=== PATIENT | male | born 1975 | race African-American/Black ===

== ENCOUNTER 2018-03-15 11:05 | Emergency (ER) | payer OTHER ==
[~2018-03-15] VITALS: Wt 106.6 kg
[~2018-03-15 11:05] MED LIST: AUGMENTIN 875875 MG PO; BACTRIM DS 8001 TA1 PO; NKHM; VICODIN ES 7501 TAB PO
[2018-03-15] MEDS ORDERED: IBU800 MG PO (12:48)
== END 2018-03-15 12:51 | disposition home or self-care (01) ==
LOC: ED 11:05
DX: S40.011A Contusion of right shoulder, initial encounter (principal); S20.211A Contusion of right front wall of thorax, initial encounter; Y01.XXXA Assault by pushing from high place, initial encounter; Y93.89 Activity, other specified; Y92.89 Other specified places as the place of occurrence of the external cause; Y99.8 Other external cause status

== ENCOUNTER → 2019-12-14 | Outpatient (CLI) | payer BC ==
[~2019-12-14] MED LIST changes: +IBU800 MG PO
[2019-12-14 14:51] LABS: BASO # 0.1 10*3/uL (0.0-0.1); BASO % 0.9 % (0.0-1.0); EOS % 0.7 % (1.0-4.0); HEMATOCRIT 51.3 % (42.0-52.0); HEMOGLOBIN 17.3 g/dl (14.0-18.0); LYMPH # 1.4 10*3/uL (1.3-4.4); LYMPH % 23.5 % (27.0-41.0); MEAN CELL VOLUME 95.7 fl (80.0-94.0); MEAN CORPUSCULAR HGB 32.3 pg (27.0-31.0); MEAN CORPUSCULAR HGB CONC 33.7 g/dl (33.0-37.0); MEAN PLATELET VOLUME 9.6 fl (9.6-12.3); MONO # 0.7 10*3/uL (0.1-1.0); MONO % 11.4 % (3.0-9.0); NEUT # 3.7 10*3/uL (2.3-7.9); NEUT % 63.2 % (47.0-73.0); PLATELET COUNT AUTOMATED 200 10*3/uL (130-400); RED BLOOD COUNT 5.36 10*6/uL (4.50-5.90); RED CELL DISTRI WIDTH 14.5 % (0-14.5); RETICULOCYTE % 1.69 % (0.50-2.50); WHITE BLOOD COUNT 5.9 10*3/uL (4.8-10.8)
[2019-12-14 15:05] LABS: BILIRUBIN NEGATIVE (NEGATIVE); BLOOD NEGATIVE (NEGATIVE); CLARITY CLEAR (CLEAR); COLOR YELLOW (YELLOW); GLUCOSE NEGATIVE (NEGATIVE); KETONE NEGATIVE (NEGATIVE); LEUKO ESTERASE NEGATIVE (NEGATIVE); NITRITE NEGATIVE (NEGATIVE); PH 7.5 (5.0-9.0); SPECIFIC GRAVITY 1.015 (1.005-1.030); UROBILINOGEN 0.2 E.U./dl (0.2-1.0)
[2019-12-14 15:06] LABS: WBC 0-2 wbc/hpf (0-5)
[2019-12-14 15:20] LABS: ALBUMIN 4.1 gm/dl (3.1-4.5); BUN 8 mg/dl (7-24); CHLORIDE 107 mmol/L (98-107); GAMMA GLUTAMYL TRANSPEPTIDASE 70 U/L (15-85); POTASSIUM 4.1 mmol/L (3.5-5.1); SODIUM 137 mmol/L (136-145)
[2019-12-14 15:28] LABS: FERRITIN 385.2 ng/mL (22.0-322.0); VITAMIN D, 25-HYDROXY 11.3 ng/mL (30-100)
[2019-12-14 15:32] LABS: ALKALINE PHOSPHATASE 51 U/L (45-117); CHOLESTEROL 224 mg/dL (<200); CREATININE 1.14 mg/dL (0.70-1.30); HDL CHOLESTEROL 92 mg/dl (40-60); IRON 127 ug/dL (65-175); LDL CHOLESTEROL 117 mg/dL (9-159); SGOT/AST 41 IU/L (3-35); SGPT/ALT 58 U/L (12-78); TOTAL IRON BINDING CAPACITY 279 ug/dl (250-450); TOTAL PROTEIN 7.9 gm/dL (6.4-8.2); TRIGLYCERIDES 76 mg/dl (<150); URIC ACID 4.9 mg/dL (3.5-7.2); VLDL CHOLESTEROL 15 mg/dL (6-40)
[2019-12-14 15:36] LABS: BASOPHILS 2 % (0-1); TOTAL CELLS COUNTED 100 #CELLS
[2019-12-14 15:37] LABS: PLATELET SUFFICIENCY NORMAL (NORMAL)
[2019-12-15 08:07] LABS: RHEUMATOID ARTHRITIS FACTOR 10.1 IU/mL (0.0-13.9); TOTAL PROTEIN, SERUM 7.5 g/dL (6.0-8.5)
[2019-12-15 12:08] LABS: ANTI-DSDNA ANTIBODIES 096339 <1 IU/mL (0-9)
[2019-12-15 17:06] LABS: A/G RATIO 1.2 (0.7-1.7); ALBUMIN 4.1 g/dL (2.9-4.4); ALPHA-1-GLOBULIN 0.3 g/dL (0.0-0.4); ALPHA-2-GLOBULIN 0.6 g/dL (0.4-1.0); BETA GLOBULIN 1.1 g/dL (0.7-1.3); GAMMA GLOBULIN 1.4 g/dL (0.4-1.8); GLOBULIN, TOTAL 3.4 g/dL (2.2-3.9); M-SPIKE Not Observed g/dL (Not Observed)
== END | disposition home or self-care (01) ==
LOC: LAB 14:13
PROVIDERS: Family Medicine
DX: R79.89 Other specified abnormal findings of blood chemistry (principal); R53.83 Other fatigue; E55.9 Vitamin D deficiency, unspecified